=== PATIENT | female | born 1940 | race Caucasian/White ===

== ENCOUNTER 2017-08-12 16:57 | Inpatient (IN) | payer MEDICARE, MEDICAID ==
[~2017-08-12] VITALS: Ht 165.1 cm; Wt 75.0 kg
[~2017-08-12 16:57] MED LIST: ACET-2765 PO; AMLO10TA PO; APIX5TAB3 PO; ASCO500C15 PO; BISA10SU60 RC; CARV-50 PO; CITA10TA9 PO; CLOB15CR4 TOP; DOXY100T2 PO; FOLI1TAB16 PO; FURO-150 PO; HYDR-569 PO; KEP500T PO; LOSA100T28 PO; MAGN400T6 PO; MEMA10TA PO; MULT-1085 PO; ONDA4TAB6 PO; PANT40TA4 PO; PHEN100C4 PO; PRED5TAB PO; RIVA20TA PO; SENN-161 PO
[2017-08-12] MEDS ORDERED: normal saline 1000ML IV soln IVB ONE (17:10)
[2017-08-12] MEDS ORDERED: normal saline 1000ML IV soln IV ONE (17:10)
[2017-08-12 17:40] LABS: BASOPHILS % (AUTO) 0.2 % (0-1); EOSINOPHILS # (AUTO) 0.1 X10'3 (0-0.9); EOSINOPHILS % (AUTO) 0.8 % (0-6); HEMATOCRIT 40.7 % (35.0-45.0); HEMOGLOBIN 13.2 g/dl (12.0-16.0); LYMPHOCYTES # (AUTO) 0.5 X10'3 (1.1-4.8); LYMPHOCYTES % (AUTO) 2.9 % (21-51); MEAN CORPUSCULAR HGB CONC 32.5 % (33.0-36.5); MEAN CORPUSCULAR VOLUME 89.2 FL (78-98); MEAN PLATELET VOLUME 8.8 FL (7.4-10.4); MONOCYTES # (AUTO) 0.2 X10'3 (0-0.9); MONOCYTES % (AUTO) 0.9 % (2-12); NEUTROPHILS # (AUTO) 17.2 X10'3 (1.8-7.7); NEUTROPHILS % (AUTO) 95.2 % (42-75); PLATELET COUNT 222 X10'3 (140-440); RED BLOOD COUNT 4.57 X10'6 (4.20-5.60); RED CELL DISTRIBUTION WIDTH 15.6 % (11.5-14.5)
[2017-08-12 17:45] LABS: INR 1.1 INR; PARTIAL THROMBOPLASTIN TIME 23 SECONDS (22-32); PROTHROMBIN TIME 11.1 SECONDS (9.0-12.0)
[2017-08-12 18:03] LABS: TOTAL CELLS COUNTED 100
[2017-08-12 18:05] LABS: ELLIPTOCYTES 1+; PLATELET ESTIMATE NORMAL
[2017-08-12] MEDS ORDERED: acetaminophen 650mg rectal suppository RC ONE ×2 (18:05→18:35)
[2017-08-12 18:06] LABS: SCHISTOCYTES FEW
[2017-08-12 18:09] LABS: ALANINE AMINOTRANSFERASE 25 U/L (12-78); ALBUMIN 2.8 G/DL (3.4-5.0); ALBUMIN/GLOBULIN RATIO 0.9 (1.1-1.5); ALKALINE PHOSPHATASE 60 IU/L (46-116); ANION GAP 10 (8-16); ASPARTATE AMINO TRANSFERASE 11 U/L (10-37); BILIRUBIN,TOTAL 0.7 MG/DL (0.1-1.0); BLOOD UREA NITROGEN 39 MG/DL (7-18); BUN/CREATININE RATIO 32.5 (6.6-38.0); CALCIUM 8.7 MG/DL (8.5-10.1); CHLORIDE 105 MMOL/L (99-107); GLUCOSE 140 MG/DL (70-104); POTASSIUM 4.9 MMOL/L (3.5-5.1); SODIUM 142 MMOL/L (135-145); TOTAL CARBON DIOXIDE 26.6 MMOL/L (24-32); eGFR 44 ML/MIN
[2017-08-12] MEDS ORDERED: levoFLOXACIN-Levaquin 500mg/D5 100 ML IV ONE (18:10)
[2017-08-12 18:19] LABS: CLARITY,URINE CLOUDY (Clear); COLOR,URINE YELLOW (Yellow); GLUCOSE, URINE NEGATIVE (Neg); KETONES,URINE NEGATIVE (Neg); LEUKOCYTE ESTERASE ,URINE SMALL (Neg); NITRITES, URINE POSITIVE (Neg); OCCULT BLOOD,URINE TRACE-LYSED (Neg); PROTEIN,URINE NEGATIVE (Neg); UROBILINOGEN,URINE 0.2 E.U/dL (0.2-1.0)
[2017-08-12 18:20] LABS: UA COLLECTION TYPE FOLEY CATH
[2017-08-12 18:30] LABS: MUCUS STRANDS FEW /LPF (Neg); SQUAMOUS EPITHELIAL CELL,UR MANY /LPF (FEW)
[2017-08-12 18:35] LABS: RBC,URINE 0-2 /HPF (0-2); WBC,URINE 50-100 /HPF (0-4)
[2017-08-12 18:36] LABS: BACTERIA,URINE 4+ /HPF (Neg); HYALINE CASTS 0-3 /LPF (NEGATIVE)
[2017-08-12] MEDS ORDERED: DULR RC (18:52)
[2017-08-12] MEDS ORDERED: HYDR50CA PO (18:52)
[2017-08-12] MEDS ORDERED: LIDOcaine 1% 30ml vial ONE (21:19)
[2017-08-12] MEDS ORDERED: BUPIVAcaine/PF 2.5 mg/ml (0.25%) 30ml vial ONE (21:19)
[2017-08-12] MEDS ORDERED: sevoflurane 250ml liquid IH ONE (21:37)
[2017-08-12] MEDS ORDERED: EPHEDRINE SULFATE/0.9% NACL/PF 50 MG/5 ML ML IJ ONE (21:37)
[2017-08-12] MEDS ORDERED: fentaNYL/PF 50MCG/1 ML 2ML syringe ONE (21:39)
[2017-08-12] MEDS ORDERED: neostigmine methylsulfate 1 MG/ML 10ml vial ONE (22:21)
[2017-08-12] MEDS ORDERED: rocuronium 10mg/ml inj IV ONE (22:21)
[2017-08-12] MEDS ORDERED: etomidate 2mg/ml inj. ONE (22:21)
[2017-08-12] MEDS ORDERED: LIDOcaine 2% (20mg/ml) 5ml vial ONE (22:21)
[2017-08-12] MEDS ORDERED: glycopyrrolate 0.2mg/ml inj ONE (22:21)
[2017-08-12] MEDS ORDERED: dexamethasone sod phosphate 4mg/ml inj. ONE (22:21)
[2017-08-12 22:40] VITALS: BP 106/56
[2017-08-12 22:50] VITALS: BP 107/55
[2017-08-12 23:00] VITALS: BP 111/57
[2017-08-12 23:10] VITALS: BP 121/64
[2017-08-12] MEDS ORDERED: ondansetron/PF 4mg/2ml inj IV PRN (23:10)
[2017-08-12 23:20] VITALS: BP 115/53
[2017-08-12 23:30] VITALS: BP 104/56
[2017-08-13] VITALS (12 sets, daily range): BP systolic 114–141; BP diastolic 55–70
[2017-08-13] MEDS: ringers solution, lacted 1,000 ML IV SCH ×3 (01:13→16:45)
[2017-08-13] MEDS: levetiracetam 250mg tablet PO SCH ×2 (07:58→20:20)
[2017-08-13] MEDS: memantine 5mg tablet PO SCH (07:58)
[2017-08-13] MEDS: folic acid 1mg tablet PO SCH (07:58)
[2017-08-13] MEDS: carVEDilol 12.5mg tablet PO SCH ×2 (07:58→20:20)
[2017-08-13] MEDS: enoxaparin 40mg/0.4ml syringe SQ SCH (07:59)
[2017-08-13] MEDS ORDERED: amLODIPine 5mg tablet PO SCH (08:00)
[2017-08-13] MEDS ORDERED: AMLO10TA PO (08:53)
[2017-08-13] MEDS: morphine sulfate 8 MG/ML SYRINGE IV PRN (13:19)
[2017-08-13] MEDS: prednisone 10mg tablet PO SCH (14:00)
[2017-08-13] MEDS: levoFLOXACIN-Levaquin 250mg/D5 100 ML IV SCH (17:48)
[2017-08-13] MEDS: lactobacillus rhamnosus 10,000 MMU CELLS/CAPSULE PO SCH (17:48)
[2017-08-14] VITALS: BP 117/63
[2017-08-14] MEDS: morphine sulfate 8 MG/ML SYRINGE IV PRN ×2 (02:43→17:06)
[2017-08-14] MEDS: ringers solution, lacted 1,000 ML IV SCH ×2 (04:05→17:13)
[2017-08-14 07:00] VITALS: BP 146/78
[2017-08-14 08:00] VITALS: BP 131/62
[2017-08-14] MEDS: levetiracetam 250mg tablet PO SCH ×2 (09:40→19:39)
[2017-08-14] MEDS: prednisone 10mg tablet PO SCH (09:40)
[2017-08-14] MEDS: memantine 5mg tablet PO SCH (09:40)
[2017-08-14] MEDS: lactobacillus rhamnosus 10,000 MMU CELLS/CAPSULE PO SCH ×2 (09:40→17:06)
[2017-08-14] MEDS: carVEDilol 12.5mg tablet PO SCH ×2 (09:41→19:39)
[2017-08-14] MEDS: amLODIPine 5mg tablet PO SCH (09:41)
[2017-08-14] MEDS: folic acid 1mg tablet PO SCH (09:41)
[2017-08-14] MEDS: enoxaparin 40mg/0.4ml syringe SQ SCH (09:41)
[2017-08-14 11:00] VITALS: BP 111/60
[2017-08-14] MEDS: levoFLOXACIN-Levaquin 250mg/D5 100 ML IV SCH (17:06)
[2017-08-14] MEDS ORDERED: magnesium hydroxide 30ml (MOM) UD suspension PO ONE (17:50)
[2017-08-14 18:00] VITALS: BP 136/73
[2017-08-15] VITALS: BP 133/62
[2017-08-15] MEDS: ringers solution, lacted 1,000 ML IV SCH (04:54)
[2017-08-15 05:18] LABS: BASOPHILS % (AUTO) 0 % (0-1); EOSINOPHILS % (AUTO) 0.9 % (0-6); HEMATOCRIT 28.7 % (35.0-45.0); HEMOGLOBIN 9.5 g/dl (12.0-16.0); LYMPHOCYTES # (AUTO) 0.3 X10'3 (1.1-4.8); LYMPHOCYTES % (AUTO) 9.3 % (21-51); MEAN CORPUSCULAR HEMOGLOBIN 29.2 PG (27.0-31.0); MEAN CORPUSCULAR HGB CONC 32.9 % (33.0-36.5); MEAN CORPUSCULAR VOLUME 88.7 FL (78-98); MEAN PLATELET VOLUME 8.8 FL (7.4-10.4); MONOCYTES # (AUTO) 0.3 X10'3 (0-0.9); MONOCYTES % (AUTO) 7.6 % (2-12); NEUTROPHILS # (AUTO) 2.9 X10'3 (1.8-7.7); NEUTROPHILS % (AUTO) 82.2 % (42-75); PLATELET COUNT 136 X10'3 (140-440); RED BLOOD COUNT 3.24 X10'6 (4.20-5.60); RED CELL DISTRIBUTION WIDTH 15.4 % (11.5-14.5); WHITE BLOOD COUNT 3.5 X10'3 (4.5-11.0)
[2017-08-15 07:00] VITALS: BP 143/73
[2017-08-15] MEDS: levetiracetam 250mg tablet PO SCH ×2 (07:56→19:25)
[2017-08-15] MEDS: memantine 5mg tablet PO SCH (07:56)
[2017-08-15] MEDS: prednisone 10mg tablet PO SCH (07:56)
[2017-08-15] MEDS: lactobacillus rhamnosus 10,000 MMU CELLS/CAPSULE PO SCH ×2 (07:56→17:04)
[2017-08-15] MEDS: folic acid 1mg tablet PO SCH (07:56)
[2017-08-15] MEDS: enoxaparin 40mg/0.4ml syringe SQ SCH (07:57)
[2017-08-15] MEDS: carVEDilol 12.5mg tablet PO SCH ×2 (07:57→19:25)
[2017-08-15] MEDS: amLODIPine 5mg tablet PO SCH (07:57)
[2017-08-15] MEDS: LACTOSE-FREE FOOD (BOOST BREEZE) 237ML PO SCH ×3 (08:00→18:07)
[2017-08-15] MEDS ORDERED: magnesium hydroxide 30ml (MOM) UD suspension PO ONE (09:55)
[2017-08-15 11:00] VITALS: BP 116/61
[2017-08-15] MEDS ORDERED: levoFLOXACIN 250mg tablet PO SCH (11:00)
[2017-08-15] MEDS: cephalexin 500mg capsule PO SCH ×2 (16:13→23:47)
[2017-08-15 18:00] VITALS: BP 139/70
[2017-08-15] MEDS: rivaroxaban 20mg tablet PO SCH (19:25)
[2017-08-16] VITALS: BP 136/65
[2017-08-16] MEDS: ringers solution, lacted 1,000 ML IV SCH (05:35)
[2017-08-16 06:35] VITALS: BP 138/56
[2017-08-16] MEDS: levetiracetam 250mg tablet PO SCH ×2 (07:10→19:51)
[2017-08-16] MEDS: lactobacillus rhamnosus 10,000 MMU CELLS/CAPSULE PO SCH ×2 (07:10→17:09)
[2017-08-16] MEDS: prednisone 10mg tablet PO SCH (07:10)
[2017-08-16] MEDS: cephalexin 500mg capsule PO SCH ×2 (07:10→17:09)
[2017-08-16] MEDS: carVEDilol 12.5mg tablet PO SCH ×2 (07:10→19:51)
[2017-08-16] MEDS: amLODIPine 5mg tablet PO SCH (07:10)
[2017-08-16] MEDS: memantine 5mg tablet PO SCH (07:10)
[2017-08-16] MEDS: folic acid 1mg tablet PO SCH (07:10)
[2017-08-16] MEDS: LACTOSE-FREE FOOD (BOOST BREEZE) 237ML PO SCH ×3 (08:07→18:23)
[2017-08-16] MEDS ORDERED: magnesium hydroxide 30ml (MOM) UD suspension PO ONE (11:10)
[2017-08-16 11:15] VITALS: BP 121/64
[2017-08-16] MEDS: rivaroxaban 20mg tablet PO SCH (17:09)
[2017-08-16 20:00] VITALS: BP 153/70
[2017-08-17] VITALS: BP 139/74
[2017-08-17] MEDS: cephalexin 500mg capsule PO SCH ×3 (00:37→16:36)
[2017-08-17 07:20] VITALS: BP 149/76
[2017-08-17] MEDS: LACTOSE-FREE FOOD (BOOST BREEZE) 237ML PO SCH ×3 (08:00→18:25)
[2017-08-17] MEDS: levetiracetam 250mg tablet PO SCH ×2 (09:33→21:18)
[2017-08-17] MEDS: lactobacillus rhamnosus 10,000 MMU CELLS/CAPSULE PO SCH ×2 (09:33→16:34)
[2017-08-17] MEDS: memantine 5mg tablet PO SCH (09:34)
[2017-08-17] MEDS: carVEDilol 12.5mg tablet PO SCH ×2 (09:34→21:18)
[2017-08-17] MEDS: folic acid 1mg tablet PO SCH (09:34)
[2017-08-17] MEDS: prednisone 10mg tablet PO SCH (09:34)
[2017-08-17] MEDS: amLODIPine 5mg tablet PO SCH (09:34)
[2017-08-17 12:50] LABS: BASOPHILS % (AUTO) 0 % (0-1); EOSINOPHILS # (AUTO) 0.1 X10'3 (0-0.9); EOSINOPHILS % (AUTO) 1.4 % (0-6); HEMATOCRIT 29.9 % (35.0-45.0); HEMOGLOBIN 9.9 g/dl (12.0-16.0); LYMPHOCYTES # (AUTO) 0.4 X10'3 (1.1-4.8); LYMPHOCYTES % (AUTO) 4.3 % (21-51); MEAN CORPUSCULAR HEMOGLOBIN 29.2 PG (27.0-31.0); MEAN CORPUSCULAR HGB CONC 33.1 % (33.0-36.5); MEAN CORPUSCULAR VOLUME 88.3 FL (78-98); MEAN PLATELET VOLUME 8.5 FL (7.4-10.4); MONOCYTES # (AUTO) 0.2 X10'3 (0-0.9); NEUTROPHILS # (AUTO) 9.6 X10'3 (1.8-7.7); NEUTROPHILS % (AUTO) 92.3 % (42-75); PLATELET COUNT 150 X10'3 (140-440); RED BLOOD COUNT 3.38 X10'6 (4.20-5.60); RED CELL DISTRIBUTION WIDTH 15.2 % (11.5-14.5); WHITE BLOOD COUNT 10.4 X10'3 (4.5-11.0)
[2017-08-17 13:00] LABS: ALBUMIN 2.2 G/DL (3.4-5.0); ANION GAP 5 (8-16); BLOOD UREA NITROGEN 18 MG/DL (7-18); BUN/CREATININE RATIO 18.8 (6.6-38.0); CALCIUM 8.3 MG/DL (8.5-10.1); CHLORIDE 110 MMOL/L (99-107); CREATININE 0.96 MG/DL (0.40-0.90); GLUCOSE 98 MG/DL (70-104); SODIUM 144 MMOL/L (135-145); TOTAL CARBON DIOXIDE 29.3 MMOL/L (24-32); eGFR 56 ML/MIN
[2017-08-17] MEDS ORDERED: magnesium hydroxide 30ml (MOM) UD suspension PO ONE (13:50)
[2017-08-17] MEDS ORDERED: methylnaltrexone br 12mg/0.6ml inj***SubQ only SQ ONE (13:50)
[2017-08-17] MEDS: rivaroxaban 20mg tablet PO SCH (17:46)
[2017-08-17] MEDS ORDERED: LACTOSE-FREE FOOD 237ML (BOOST) PO SCH (18:00)
[2017-08-17 19:00] VITALS: BP 141/65
[2017-08-18] VITALS: BP 126/50
[2017-08-18] MEDS: cephalexin 500mg capsule PO SCH ×2 (00:33→08:59)
[2017-08-18 08:00] VITALS: BP 142/71
[2017-08-18] MEDS: lactobacillus rhamnosus 10,000 MMU CELLS/CAPSULE PO SCH (08:54)
[2017-08-18] MEDS: folic acid 1mg tablet PO SCH (08:54)
[2017-08-18] MEDS: carVEDilol 12.5mg tablet PO SCH (08:54)
[2017-08-18] MEDS: levetiracetam 250mg tablet PO SCH (08:55)
[2017-08-18] MEDS: amLODIPine 5mg tablet PO SCH (08:55)
[2017-08-18] MEDS: prednisone 10mg tablet PO SCH (08:55)
[2017-08-18] MEDS: memantine 5mg tablet PO SCH (08:55)
[2017-08-18 11:00] VITALS: BP 123/56
== END 2017-08-18 14:05 | DRG 853 ==
LOC: ER 16:57 → SUR 3N 21:25
PROVIDERS: ADMIT Surgery; ATTEND Internal Medicine
PROC: 0WQF0ZZ Repair Abdominal Wall, Open Approach (ICD-10-PCS; principal; 2017-08-12 21:27)
DX: A41.9 Sepsis, unspecified organism (principal); G93.40 Encephalopathy, unspecified; N17.9 Acute kidney failure, unspecified; I48.2 Chronic atrial fibrillation; E86.0 Dehydration; K42.0 Umbilical hernia with obstruction, without gangrene; I13.0 Hypertensive heart and chronic kidney disease with heart failure and stage 1 through stage 4 chronic kidney disease, or unspecified chronic kidney disease; I50.22 Chronic systolic (congestive) heart failure; N39.0 Urinary tract infection, site not specified; F03.90 Unspecified dementia, unspecified severity, without behavioral disturbance, psychotic disturbance, mood disturbance, and anxiety; Z66 Do not resuscitate; N18.3 Chronic kidney disease, stage 3 (moderate); B96.20 Unspecified Escherichia coli [E. coli] as the cause of diseases classified elsewhere; R65.11 Systemic inflammatory response syndrome (SIRS) of non-infectious origin with acute organ dysfunction; Z88.1 Allergy status to other antibiotic agents; Z79.899 Other long term (current) drug therapy; Z86.73 Personal history of transient ischemic attack (TIA), and cerebral infarction without residual deficits
CPT/HCPCS: 36415; 70450; 71010; 74176; 80048; 80053; 81001; 82948; 83605; 83735; 83880; 84145; 84484; 85025; 85610; 85730; 87040; 87070; 87077; 87088; 87186; 93005; 96361; 96365; 96375; 97110; 97116; 97161; 99285; A6212; A6213; A6223; A7000; C1758; J1100; J1650; J1956; J2001; J2212; J2270; J2710; J3010; J3490; J7030; J7120; J7512

== ENCOUNTER 2018-02-13 13:34 | Inpatient (IN) | payer MEDICARE, MEDICAID ==
[~2018-02-13] VITALS: Ht 165.1 cm; Wt 72.7 kg
[~2018-02-13 13:34] MED LIST changes: -ACET-2765 PO; -APIX5TAB3 PO; -CITA10TA9 PO; -CLOB15CR4 TOP; +DULR RC; -FURO-150 PO; +HYDR50CA PO; -MULT-1085 PO; -ONDA4TAB6 PO
[2018-02-13] MEDS ORDERED: normal saline 1000ML IV soln IVB ONE (13:50)
[2018-02-13 14:25] LABS: BASOPHILS # (AUTO) 0.1 X10'3 (0-0.2); BASOPHILS % (AUTO) 0.8 % (0-1); EOSINOPHILS # (AUTO) 0.1 X10'3 (0-0.9); HEMATOCRIT 43.2 % (35.0-45.0); HEMOGLOBIN 13.9 g/dl (12.0-16.0); LYMPHOCYTES # (AUTO) 1.3 X10'3 (1.1-4.8); LYMPHOCYTES % (AUTO) 11.3 % (21-51); MEAN CORPUSCULAR HEMOGLOBIN 26.5 PG (27.0-31.0); MEAN CORPUSCULAR HGB CONC 32.2 % (33.0-36.5); MEAN CORPUSCULAR VOLUME 82.3 FL (78-98); MEAN PLATELET VOLUME 9.1 FL (7.4-10.4); MONOCYTES # (AUTO) 0.7 X10'3 (0-0.9); MONOCYTES % (AUTO) 5.8 % (2-12); NEUTROPHILS # (AUTO) 9.5 X10'3 (1.8-7.7); NEUTROPHILS % (AUTO) 81.1 % (42-75); PLATELET COUNT 193 X10'3 (140-440); RED BLOOD COUNT 5.25 X10'6 (4.20-5.60); RED CELL DISTRIBUTION WIDTH 19.7 % (11.5-14.5); WHITE BLOOD COUNT 11.7 X10'3 (4.5-11.0)
[2018-02-13 14:34] LABS: PARTIAL THROMBOPLASTIN TIME 21 SECONDS (22-32); PROTHROMBIN TIME 10.3 SECONDS (9.0-12.0)
[2018-02-13 14:39] LABS: ALANINE AMINOTRANSFERASE 27 U/L (12-78); ALBUMIN 3.2 G/DL (3.4-5.0); ALBUMIN/GLOBULIN RATIO 0.8 (1.1-1.5); ALKALINE PHOSPHATASE 67 IU/L (46-116); ANION GAP 10 (8-16); ASPARTATE AMINO TRANSFERASE 19 U/L (10-37); BILIRUBIN,TOTAL 0.5 MG/DL (0.1-1.0); BLOOD UREA NITROGEN 26 MG/DL (7-18); BUN/CREATININE RATIO 19.1 (6.6-38.0); CALCIUM 9.3 MG/DL (8.5-10.1); CHLORIDE 105 MMOL/L (99-107); CREATININE 1.36 MG/DL (0.40-0.90); GLUCOSE 104 MG/DL (70-104); POTASSIUM 3.8 MMOL/L (3.5-5.1); SODIUM 144 MMOL/L (135-145); TOTAL CARBON DIOXIDE 29.3 MMOL/L (24-32); eGFR 38 ML/MIN
[2018-02-13 14:48] LABS: MAGNESIUM 2.3 MG/DL (1.5-2.4); TROPONIN I 0.06 NG/ML (0.0-0.05)
[2018-02-13 14:55] LABS: CLARITY,URINE SLIGHTLY CLOUDY (Clear); COLOR,URINE YELLOW (Yellow); GLUCOSE, URINE NEGATIVE (Neg); KETONES,URINE NEGATIVE (Neg); LEUKOCYTE ESTERASE ,URINE SMALL (Neg); NITRITES, URINE POSITIVE (Neg); OCCULT BLOOD,URINE TRACE-INTACT (Neg); PH,URINE 6.5 (4.8-8.0); PROTEIN,URINE NEGATIVE (Neg); UROBILINOGEN,URINE 0.2 E.U/dL (0.2-1.0)
[2018-02-13 14:57] LABS: UA COLLECTION TYPE OTHER
[2018-02-13 15:06] LABS: BACTERIA,URINE 4+ /HPF (Neg); MUCUS STRANDS FEW /LPF (Neg); RBC,URINE 0-2 /HPF (0-2); SQUAMOUS EPITHELIAL CELL,UR FEW /LPF (FEW); TRANSITIONAL EPI CELLS,URINE FEW /HPF
[2018-02-13] MEDS ORDERED: CefTRIAXone 2gm/D5W 50ml 50 ML IV ONE (15:10)
[2018-02-13] MEDS ORDERED: levoFLOXACIN-Levaquin 500mg/D5 100 ML IV ONE (15:35)
[2018-02-13 16:20] LABS: D-DIMER 0.83 MG/L FEU (0-0.50)
[2018-02-13] MEDS ORDERED: morphine 4 MG/ML inj SYRINge IV PRN (16:40)
[2018-02-13] MEDS ORDERED: ondansetron/PF 4mg/2ml inj IV PRN (16:40)
[2018-02-13] MEDS ORDERED: mag hydrox/Alum hydrox/simeth 30ml oral suspension PO PRN (16:40)
[2018-02-13] MEDS ORDERED: acetaminophen 325mg tablet PO PRN (16:40)
[2018-02-13] MEDS ORDERED: magnesium hydroxide 30ml (MOM) UD suspension PO PRN (16:40)
[2018-02-13] MEDS ORDERED: AMLO10TA PO (17:33)
[2018-02-13] MEDS: furosemide 20 MG/2 ML vial IV SCH ×2 (17:57→20:26)
[2018-02-13 19:00] VITALS: BP 111/60
[2018-02-13 22:00] VITALS: BP 108/59
[2018-02-14] VITALS (7 sets, daily range): BP systolic 95–113; BP diastolic 40–62
[2018-02-14 05:16] LABS: BASOPHILS % (AUTO) 0.3 % (0-1); EOSINOPHILS # (AUTO) 0.1 X10'3 (0-0.9); EOSINOPHILS % (AUTO) 1.2 % (0-6); HEMATOCRIT 35.1 % (35.0-45.0); HEMOGLOBIN 11.6 g/dl (12.0-16.0); LYMPHOCYTES # (AUTO) 1.5 X10'3 (1.1-4.8); LYMPHOCYTES % (AUTO) 16.3 % (21-51); MEAN CORPUSCULAR HEMOGLOBIN 26.7 PG (27.0-31.0); MEAN CORPUSCULAR HGB CONC 32.9 % (33.0-36.5); MEAN CORPUSCULAR VOLUME 81.1 FL (78-98); MEAN PLATELET VOLUME 8.7 FL (7.4-10.4); MONOCYTES # (AUTO) 0.8 X10'3 (0-0.9); MONOCYTES % (AUTO) 8.6 % (2-12); NEUTROPHILS # (AUTO) 6.6 X10'3 (1.8-7.7); NEUTROPHILS % (AUTO) 73.6 % (42-75); PLATELET COUNT 174 X10'3 (140-440); RED BLOOD COUNT 4.33 X10'6 (4.20-5.60); RED CELL DISTRIBUTION WIDTH 18.9 % (11.5-14.5)
[2018-02-14 05:40] LABS: ALBUMIN 2.5 G/DL (3.4-5.0); ANION GAP 7 (8-16); BLOOD UREA NITROGEN 27 MG/DL (7-18); BUN/CREATININE RATIO 19.7 (6.6-38.0); CALCIUM 8.4 MG/DL (8.5-10.1); CHLORIDE 107 MMOL/L (99-107); CREATININE 1.37 MG/DL (0.40-0.90); GLUCOSE 89 MG/DL (70-104); POTASSIUM 3.4 MMOL/L (3.5-5.1); SODIUM 145 MMOL/L (135-145); TOTAL CARBON DIOXIDE 30.7 MMOL/L (24-32); eGFR 37 ML/MIN
[2018-02-14] MEDS ORDERED: magnesium Cl slow-release 64mg tablet PO PRN (06:35)
[2018-02-14] MEDS ORDERED: potassium Cl 20 mEq SR tablet PO PRN (06:35)
[2018-02-14] MEDS ORDERED: magnesium/D5W IVPB 100 ML IV PRN (06:35)
[2018-02-14] MEDS ORDERED: magnesium 4gm in 100ml NS 100 ML IV PRN (06:35)
[2018-02-14] MEDS ORDERED: potassium Cl 40MEQ/NS 500ml 500 ML IV PRN ×2 (06:35)
[2018-02-14] MEDS ORDERED: HYDROcodone/acetaminophen 5mg/325mg tablet PO PRN ×2 (07:30)
[2018-02-14 07:40] LABS: HEMOGLOBIN A1C 7.6 % (4.5-6.2)
[2018-02-14] MEDS ORDERED: enoxaparin 40mg/0.4ml syringe SUBCUT SCH (08:00)
[2018-02-14] MEDS: furosemide 20 MG/2 ML vial IV SCH ×2 (09:27→20:00)
[2018-02-14] MEDS: magnesium oxide 400mg tablet PO SCH ×2 (09:31→20:00)
[2018-02-14] MEDS: losartan 50mg tablet PO SCH (09:31)
[2018-02-14] MEDS: carVEDilol 12.5mg tablet PO SCH ×2 (09:33→20:00)
[2018-02-14] MEDS: ascorbic acid 500mg tablet PO SCH (09:33)
[2018-02-14] MEDS: levetiracetam 250mg tablet PO SCH (09:33)
[2018-02-14] MEDS: memantine 5mg tablet PO SCH (09:33)
[2018-02-14] MEDS: potassium Cl 20 mEq SR tablet PO PRN ×2 (09:33→16:35)
[2018-02-14] MEDS: folic acid 1mg tablet PO SCH (09:34)
[2018-02-14] MEDS: prednisone 10mg tablet PO SCH (09:34)
[2018-02-14] MEDS: amLODIPine 5mg tablet PO SCH (09:34)
[2018-02-14] MEDS: pantoprazole 40mg Tablet.DR PO SCH (09:34)
[2018-02-14] MEDS: hydrOXYzine 25 MG tablet PO SCH ×2 (09:34→14:18)
[2018-02-14] MEDS: sennosides 8.6mg tablet PO SCH (09:34)
[2018-02-14] MEDS: doxycycline hyclate 100mg tablet.DR PO SCH ×2 (09:34→20:00)
[2018-02-14] MEDS ORDERED: XAL0.005OS OP (12:33)
[2018-02-14] MEDS ORDERED: FURO-150 PO (12:34)
[2018-02-14] MEDS ORDERED: METF500T PO (12:34)
[2018-02-14] MEDS ORDERED: IPRA3AMP IH (12:35)
[2018-02-14] MEDS ORDERED: POTA10TA19 PO (12:36)
[2018-02-14] MEDS ORDERED: LACT1CAP65 PO (12:36)
[2018-02-14] MEDS: lactobacillus rhamnosus 10,000 MMU CELLS/CAPSULE PO SCH (20:00)
[2018-02-14] MEDS ORDERED: dextrose 50%-water 50ml dispensing syringe IV ONE (20:45)
[2018-02-14] MEDS ORDERED: phenytoin sod ER 100mg capsule PO SCH (21:00)
[2018-02-14] MEDS ORDERED: rivaroxaban 15mg tablet PO SCH (21:00)
[2018-02-14 21:11] LABS: ABG BASE EXCESS 4.8 mmol/L (-2.0-3.0); ABG HCO3 29.5 mmol/L (22.0-26.0); ABG OXYGEN SATURATION 90.2 % (95-98); ABG PCO2 (T) 43.5 mmHg (32.0-45.0); ABG PH (T) 7.448 (7.350-7.450); ABG PO2 (T) 62.8 mmHg (83-108); ALLEN'S TEST Positive; FCOHb 0.5 % (0.5-1.5); FMetHb 0.1 % (0.3-1.12); FO2Hb 89.7 % (94-100); PATIENT TEMPERATURE 36.8
[2018-02-15] MEDS: levetiracetam 250mg tablet PO SCH ×2 (00:51→08:54)
[2018-02-15] MEDS: potassium Cl 20 mEq SR tablet PO PRN (00:57)
[2018-02-15 03:00] VITALS: BP 89/52
[2018-02-15 05:30] VITALS: BP 98/52
[2018-02-15 06:04] LABS: BASOPHILS % (AUTO) 0.1 % (0-1); EOSINOPHILS # (AUTO) 0.1 X10'3 (0-0.9); EOSINOPHILS % (AUTO) 1.4 % (0-6); HEMATOCRIT 35.9 % (35.0-45.0); HEMOGLOBIN 11.8 g/dl (12.0-16.0); LYMPHOCYTES % (AUTO) 9.4 % (21-51); MEAN CORPUSCULAR HEMOGLOBIN 26.8 PG (27.0-31.0); MEAN CORPUSCULAR HGB CONC 32.8 % (33.0-36.5); MEAN CORPUSCULAR VOLUME 81.5 FL (78-98); MONOCYTES # (AUTO) 0.5 X10'3 (0-0.9); MONOCYTES % (AUTO) 5.2 % (2-12); NEUTROPHILS # (AUTO) 8.6 X10'3 (1.8-7.7); NEUTROPHILS % (AUTO) 83.9 % (42-75); PLATELET COUNT 179 X10'3 (140-440); RED BLOOD COUNT 4.41 X10'6 (4.20-5.60); RED CELL DISTRIBUTION WIDTH 18.8 % (11.5-14.5); WHITE BLOOD COUNT 10.3 X10'3 (4.5-11.0)
[2018-02-15 06:16] LABS: ALBUMIN 2.5 G/DL (3.4-5.0); ANION GAP 8 (8-16); BLOOD UREA NITROGEN 38 MG/DL (7-18); BUN/CREATININE RATIO 27.5 (6.6-38.0); CALCIUM 8.8 MG/DL (8.5-10.1); CHLORIDE 106 MMOL/L (99-107); CREATININE 1.38 MG/DL (0.40-0.90); GLUCOSE 129 MG/DL (70-104); MAGNESIUM 2.5 MG/DL (1.5-2.4); POTASSIUM 4.6 MMOL/L (3.5-5.1); SODIUM 142 MMOL/L (135-145); TOTAL CARBON DIOXIDE 27.6 MMOL/L (24-32); eGFR 37 ML/MIN
[2018-02-15] MEDS: carVEDilol 12.5mg tablet PO SCH (07:23)
[2018-02-15] MEDS: amLODIPine 5mg tablet PO SCH ×2 (07:23→08:47)
[2018-02-15] MEDS: losartan 50mg tablet PO SCH (08:00)
[2018-02-15] MEDS: furosemide 20 MG/2 ML vial IV SCH (08:47)
[2018-02-15] MEDS: prednisone 10mg tablet PO SCH (08:47)
[2018-02-15] MEDS: sennosides 8.6mg tablet PO SCH (08:47)
[2018-02-15] MEDS: pantoprazole 40mg Tablet.DR PO SCH (08:47)
[2018-02-15] MEDS: doxycycline hyclate 100mg tablet.DR PO SCH (08:47)
[2018-02-15] MEDS: ascorbic acid 500mg tablet PO SCH (08:47)
[2018-02-15] MEDS: folic acid 1mg tablet PO SCH (08:47)
[2018-02-15] MEDS: memantine 5mg tablet PO SCH (08:48)
[2018-02-15] MEDS: lactobacillus rhamnosus 10,000 MMU CELLS/CAPSULE PO SCH (08:48)
[2018-02-15] MEDS: magnesium oxide 400mg tablet PO SCH (08:53)
[2018-02-15 11:00] VITALS: BP 102/54
== END 2018-02-15 14:30 | DRG 70 ==
LOC: ER 13:35 → ED HOLD 16:40 → PCU 3S 17:30
PROVIDERS: ADMIT Internal Medicine; ATTEND Internal Medicine
DX: G93.40 Encephalopathy, unspecified (principal); I50.23 Acute on chronic systolic (congestive) heart failure; N17.9 Acute kidney failure, unspecified; E87.2 Acidosis; I13.0 Hypertensive heart and chronic kidney disease with heart failure and stage 1 through stage 4 chronic kidney disease, or unspecified chronic kidney disease; N39.0 Urinary tract infection, site not specified; G40.909 Epilepsy, unspecified, not intractable, without status epilepticus; F03.90 Unspecified dementia, unspecified severity, without behavioral disturbance, psychotic disturbance, mood disturbance, and anxiety; E11.22 Type 2 diabetes mellitus with diabetic chronic kidney disease; D50.0 Iron deficiency anemia secondary to blood loss (chronic); I48.0 Paroxysmal atrial fibrillation; N18.9 Chronic kidney disease, unspecified; R09.02 Hypoxemia; Z79.01 Long term (current) use of anticoagulants; Z79.84 Long term (current) use of oral hypoglycemic drugs; Z79.899 Other long term (current) drug therapy; Z88.8 Allergy status to other drugs, medicaments and biological substances; Z86.73 Personal history of transient ischemic attack (TIA), and cerebral infarction without residual deficits; Z87.440 Personal history of urinary (tract) infections
CPT/HCPCS: 36415; 36600; 70450; 71045; 80048; 80053; 81001; 82803; 82948; 83036; 83605; 83735; 83880; 84145; 84484; 85018; 85025; 85379; 85610; 85730; 87040; 87045; 87046; 87070; 87077; 87088; 87186; 93306; 97110; 97116; 97162; A4315; A4620; A6258; J0696; J1940; J1956; J7030; J7512; Q0177

== ENCOUNTER 2018-03-08 07:39 | Emergency (ER) | payer MEDICARE, MEDICAID ==
[~2018-03-08] VITALS: Ht 167.6 cm; Wt 86.4 kg
[~2018-03-08 07:39] MED LIST changes: +ACET-2119 PO; -BISA10SU60 RC; +CARV6.253 PO; -DOXY100T2 PO; +FURO-150 PO; +FURO20TA4 PO; +IPRA3AMP IH; +LACT1CAP65 PO; +METF500T PO; -PHEN100C4 PO; +POTA10TA19 PO; +POTA8TAB3 PO; +XAL0.005OS OP
[2018-03-08] MEDS ORDERED: CefTRIAXone 2gm/D5W 50ml 50 ML IV ONE (08:20)
[2018-03-08 08:48] LABS: BASOPHILS % (AUTO) 0.2 % (0-1); EOSINOPHILS # (AUTO) 0.4 X10'3 (0-0.9); EOSINOPHILS % (AUTO) 4.6 % (0-6); HEMATOCRIT 31.1 % (35.0-45.0); HEMOGLOBIN 10.3 g/dl (12.0-16.0); LYMPHOCYTES # (AUTO) 1.5 X10'3 (1.1-4.8); LYMPHOCYTES % (AUTO) 17.4 % (21-51); MEAN CORPUSCULAR HEMOGLOBIN 27.2 PG (27.0-31.0); MEAN CORPUSCULAR HGB CONC 33.1 % (33.0-36.5); MEAN CORPUSCULAR VOLUME 82.1 FL (78-98); MEAN PLATELET VOLUME 8.4 FL (7.4-10.4); MONOCYTES # (AUTO) 0.7 X10'3 (0-0.9); MONOCYTES % (AUTO) 8.3 % (2-12); NEUTROPHILS # (AUTO) 5.9 X10'3 (1.8-7.7); NEUTROPHILS % (AUTO) 69.5 % (42-75); PLATELET COUNT 190 X10'3 (140-440); RED BLOOD COUNT 3.79 X10'6 (4.20-5.60); RED CELL DISTRIBUTION WIDTH 18.3 % (11.5-14.5); WHITE BLOOD COUNT 8.5 X10'3 (4.5-11.0)
[2018-03-08 08:58] LABS: INR 1.2 INR; PARTIAL THROMBOPLASTIN TIME 29 SECONDS (22-32); PROTHROMBIN TIME 12.7 SECONDS (9.0-12.0)
[2018-03-08 09:10] LABS: ANISOCYTOSIS 2+; ELLIPTOCYTES 1+; PLATELET ESTIMATE NORMAL
[2018-03-08 09:11] LABS: ALANINE AMINOTRANSFERASE 22 U/L (12-78); ALBUMIN 2.5 G/DL (3.4-5.0); ALBUMIN/GLOBULIN RATIO 0.8 (1.1-1.5); ALKALINE PHOSPHATASE 51 IU/L (46-116); ANION GAP 8 (8-16); ASPARTATE AMINO TRANSFERASE 12 U/L (10-37); BILIRUBIN,TOTAL 0.4 MG/DL (0.1-1.0); BLOOD UREA NITROGEN 17 MG/DL (7-18); CALCIUM 8.6 MG/DL (8.5-10.1); CHLORIDE 107 MMOL/L (99-107); CREATININE 1.13 MG/DL (0.40-0.90); GLUCOSE 88 MG/DL (70-104); MAGNESIUM 1.9 MG/DL (1.5-2.4); POIKILOCYTOSIS FEW; POTASSIUM 3.5 MMOL/L (3.5-5.1); SODIUM 143 MMOL/L (135-145); TOTAL CARBON DIOXIDE 28.4 MMOL/L (24-32); TOTAL PROTEIN 5.6 G/DL (6.4-8.2); eGFR 47 ML/MIN
[2018-03-08 09:38] LABS: CLARITY,URINE Clear (Clear); COLOR,URINE Yellow (Yellow); GLUCOSE, URINE Negative (Neg); KETONES,URINE Negative (Neg); LEUKOCYTE ESTERASE ,URINE Negative (Neg); NITRITES, URINE Negative (Neg); OCCULT BLOOD,URINE Negative (Neg); PROTEIN,URINE Negative (Neg)
[2018-03-08 09:51] LABS: UA COLLECTION TYPE STRAIGHT CATH
[2018-03-08 12:02] VITALS: BP 149/84
== END 2018-03-08 12:04 ==
LOC: ER 07:40
DX: R53.1 Weakness (principal); R41.82 Altered mental status, unspecified; I11.0 Hypertensive heart disease with heart failure; I50.9 Heart failure, unspecified; E11.9 Type 2 diabetes mellitus without complications; G89.29 Other chronic pain; Z86.73 Personal history of transient ischemic attack (TIA), and cerebral infarction without residual deficits; Z60.2 Problems related to living alone; Z88.8 Allergy status to other drugs, medicaments and biological substances; Z79.84 Long term (current) use of oral hypoglycemic drugs; Z79.899 Other long term (current) drug therapy
CPT/HCPCS: 36415; 71045; 80053; 81003; 83605; 83735; 84145; 85025; 85610; 85730; 87040; 93005; 96365; 99285; J0696